=== PATIENT | male | born 1970 | race Caucasian/White ===

== ENCOUNTER 2017-02-21 10:54 | Emergency (ER) | payer OTHER ==
[~2017-02-21] VITALS: Ht 188 cm; Wt 129.5 kg
[2017-02-21] MEDS ORDERED: FLONASE ALLERG9.9 ML NS (11:02)
[2017-02-21 12:50] VITALS: BP 139/99
== END 2017-02-21 12:35 | disposition home or self-care (01) ==
LOC: ED 10:54
DX: H10.9 Unspecified conjunctivitis (principal); H01.006 Unspecified blepharitis left eye, unspecified eyelid; H01.003 Unspecified blepharitis right eye, unspecified eyelid; H11.31 Conjunctival hemorrhage, right eye; I10 Essential (primary) hypertension; J30.2 Other seasonal allergic rhinitis